=== PATIENT | female | born 1950 | race Caucasian/White ===

== ENCOUNTER 2023-02-11 05:56 | Day surgery (SDC) | payer MEDICARE, MEDICAID ==
[~2023-02-11] VITALS: Ht 152.4 cm; Wt 108.2 kg
[~2023-02-11 05:56] MED LIST: SODIUM CHLORIDE 0.9% 0 ML ONE
[2023-02-11] MEDS ORDERED: SODIUM CHLORIDE 0.9% 1,000 ML IV ONE (07:00)
[2023-02-11] MEDS ORDERED: MIDAZOLAM HCL 2 MG/2 ML VIAL ONE (07:25)
[2023-02-11] MEDS ORDERED: FentaNYL CITRATE PF 100 MCG/2 ML VIAL ONE (07:25)
[2023-02-11] MEDS ORDERED: SODIUM CHLORIDE 0.9% 1,000 ML ONE (08:17)
[2023-02-11 09:10] VITALS: PULSE 65; RESP 18; O2SAT 96
[2023-02-11] MEDS ORDERED: MethylPREDNISolone SOD SUCC 125 MG/2 ML VIAL IVP ONE (09:15)
[2023-02-11] MEDS ORDERED: MethylPREDNISolone SOD SUCC 125 MG/2 ML VIAL ONE (09:29)
[2023-02-11] MEDS ORDERED: LIDOCAINE 2% 11 ML JELLY ONE (17:44)
[2023-02-11] MEDS ORDERED: LIDOCAINE 4% 50 ML SOLUTION ONE (17:44)
[2023-02-11] MEDS ORDERED: BENZOCAINE 20% 50 MCG/SPRAY 57 GM ONE (17:44)
== END 2023-02-11 11:45 | disposition home or self-care (01) ==
LOC: SURGERY 05:56
PROVIDERS: ATTEND Internal Medicine Critical Care Medicine
DX: J38.4 Edema of larynx (principal); B37.0 Candidal stomatitis; J44.9 Chronic obstructive pulmonary disease, unspecified; G47.30 Sleep apnea, unspecified; M19.90 Unspecified osteoarthritis, unspecified site; E78.00 Pure hypercholesterolemia, unspecified; Z98.890 Other specified postprocedural states; Z90.710 Acquired absence of both cervix and uterus; Z96.651 Presence of right artificial knee joint
CPT/HCPCS: 88112; 87206; 87101; 87220; 87070; 31623; 31624; 71045; 87015; J3010; J2250; J2930; Q9967; J7030; Z7610